=== PATIENT | female | born 1990 | race African-American/Black ===

== ENCOUNTER 2017-03-08 16:05 | Emergency (ER) | payer OTHER ==
[~2017-03-08] VITALS: Ht 160 cm; Wt 46.3 kg
[2017-03-08 16:14] VITALS: BP 112/61
== END 2017-03-08 20:38 | disposition left against medical advice (07) ==
LOC: ER 16:10
DX: R10.9 Unspecified abdominal pain (principal); R11.2 Nausea with vomiting, unspecified; Z53.21 Procedure and treatment not carried out due to patient leaving prior to being seen by health care provider